=== PATIENT | male | born 1950 | race American Indian/Alaskan Native ===

== ENCOUNTER 2017-05-28 11:39 | Emergency (ER) | payer SELFPAY ==
[2017-05-28 12:47] LABS: Basophils % (Auto) 0.8 % (0.0-1.8); Eosinophils % (Auto) 3.1 % (0.0-4.3); Hematocrit 40.9 % (35.5-45.6); Hemoglobin 13.7 gm/dl (11.8-15.2); Mean Corpuscular HGB Conc 34 % (32-34); Mean Corpuscular Hemoglobin 27 pg (28-32); Mean Corpuscular Volume 80 fl (84-94); Platelet Count 341 K/mm3 (140-440); Red Blood Count 5.14 M/mm3 (3.65-5.03); Red Cell Distribution Width 12.6 % (13.2-15.2); White Blood Count 6.6 K/mm3 (4.5-11.0)
--- NOTE | 2017-05-28 13:02 | Emergency Department Report ---
HPI - General Chief Complaint: Hyperglycemia Time Seen by Provider: 05/28/17 12:48 - HPI HPI: This is a 66-year-old -[place] male who presents to the emergency department by EMS from home with complaint of altered mental status and what appears to be hyperglycemia. The patient says that he's been feeling altered since yesterday all his brother to come and see him today because he says that he "do not know where I am or where I was." Patient says that he realizes that he is in the emergency department and was transported by EMS but otherwise cannot recall exactly what happened this morning that led him to this point. In route, the blood sugar was checked and was found to be greater than 500. He received some IV fluid resuscitation. He denies any pain but still says that he feels confused. The patient has a history of hypertension for which he takes Norvasc and HCTZ. He allegedly has a diagnosed history of diabetes mellitus but the brother, who is bedside, says that he has only seen him taking those 2 blood pressure medications and that there is not any known diabetes medication that he takes. He does not have a primary care physician and the blood pressure medications were last filled through the [facility]. No recent travel or sick contacts at home. No history of CVA, [place], PE/DVT. ED Past Medical Hx - Past Medical History Hx Hypertension: Yes Hx Diabetes: Yes - Social History Smoking Status: Never Smoker Substance Use Type: None - Medications Home Medications: Home Medications Medication Instructions Recorded Confirmed Last Taken Type Hydrochlorothiazide [HCTZ] 25 mg PO QDAY 05/28/17 05/28/17 Unknown History amLODIPine [Norvasc] 10 mg PO DAILY 05/28/17 05/28/17 Unknown History ED Review of Systems ROS: Stated complaint: HYPERGLYCEMIA Other details as noted in HPI Comment: All other systems reviewed and negative Constitutional: denies: chills, fever Eyes: denies: eye pain, eye discharge, vision change ENT: denies: ear pain, throat pain Respiratory: denies: cough, shortness of breath, wheezing Cardiovascular: denies: chest pain, palpitations Gastrointestinal: denies: abdominal pain, nausea, diarrhea Genitourinary: denies: urgency, dysuria Musculoskeletal: denies: back pain, joint swelling, arthralgia Skin: denies: rash, lesions Neurological: confusion. denies: headache, paresthesias Physical Exam - Physical Exam Vital Signs: Vital Signs 05/28/17 05/28/17 12:26 12:41 Temperature 98.4 F Pulse Rate 77 Respiratory 12 12 Rate Blood Pressure 133/83 O2 Sat by Pulse 98 98 Oximetry Physical Exam: GENERAL: The patient is well-developed well-nourished. HENT: Normocephalic. Atraumatic. Patient has moist mucous membranes. EYES: Extraocular motions are intact. Pupils equal reactive to light bilaterally. NECK: Supple. Trachea is midline. CHEST/LUNGS: Clear to auscultation. There is no respiratory distress noted. HEART/CARDIOVASCULAR: Regular. There is no tachycardia. There is no gallop rub or murmur. ABDOMEN: Abdomen is soft, nontender. Patient has normal bowel sounds. There is no abdominal distention. SKIN: Skin is warm and dry. NEURO: Patient is awake but confused. Follows commands but has trouble answering questions appropriately. Cranial nerves II through XII grossly intact. No pronator drift. MUSCULOSKELETAL: There is no tenderness or deformity. There is no limitation range of motion. Cap refill less than 2 seconds. ED Course Vital Signs 05/28/17 05/28/17 12:26 12:41 Temperature 98.4 F Pulse Rate 77 Respiratory 12 12 Rate Blood Pressure 133/83 O2 Sat by Pulse 98 98 Oximetry ED Medical Decision Making - Lab Data Result diagrams: 05/28/17 12:25 05/28/17 12:35 - EKG Data -: EKG Interpreted by Ak EKG shows normal: sinus rhythm, axis, intervals, QRS complexes, ST-T waves Rate: normal - EKG Data When compared to previous EKG there are: previous EKG unavailable Interpretation: normal EKG - Radiology Data Radiology results: report reviewed CT of the head does not show any acute intracranial process including no ischemia, shift, mass, bleeding or skull fracture. - Medical Decision Making 66-year-old male presents to the emergency department after having some confusion and altered mental status. Patient has a history of diabetes but it does not appear that he is on any medication. Blood sugar was found to be about 730. More likely to be HHNK than DKA as there is no venous acidosis or elevated anion gap. He was given some IV fluid resuscitation and a bolus of insulin to start. CT of the head does not show any bleed, shift, mass or any acute process. The rest of his labs are unremarkable other than some pseudohyponatremia. EKG is normal without ST elevation [place], ischemia or dysrhythmia. He will be admitted to the hospital for his uncontrolled diabetes mellitus as well as his altered mental status. - Differential Diagnosis DKA, HHNK, CVA, TIA, [place] Critical Care Time: No Critical care attestation.: If time is entered above; I have spent that time in minutes in the direct care of this critically ill patient, excluding procedure time. ED Disposition Clinical Impression: HHNC (hyperglycemic hyperosmolar nonketotic coma) Altered mental status Qualifiers: Altered mental status type: transient alteration of awareness Qualified Code(s) : R40.4 - Transient alteration of awareness Uncontrolled diabetes mellitus with hyperglycemia Qualifiers: Diabetes mellitus type: other specified (including JUVENTINO) Diabetes mellitus half-way insulin use: unspecified terminal press operator insulin use status Qualified Code(s ): E13.65 - Other specified diabetes mellitus with hyperglycemia Disposition: DC-09 OP ADMIT IP TO THIS HOSP Is pt being admited?: Yes Condition: Fair Referrals: PRIMARY CARE, [Primary Care Provider] - 3-5 Days Time of Disposition: 14:45
[2017-05-28 13:07] LABS: BUN/Creatinine Ratio 13.66; Chloride 79.8 mmol/L (98-107); Potassium 3.5 mmol/L (3.6-5.0)
[2017-05-28 13:18] LABS: Bilirubin,Urine NEG (Negative); Blood,Urine SM (Negative); Ketones,Urine NEG (Negative); Leukocyte Esterase,Urine NEG (Negative); Nitrite,Urine NEG (Negative); Urobilinogen,Urine < 2.0 mg/dL (<2.0)
--- NOTE | 2017-05-28 13:43 | Cat Scan Report ---
CT HEAD WITHOUT CONTRAST: HISTORY: Altered mental status. TECHNIQUE: Sequential CT images without contrast. FINDINGS: Images obtained show bilateral prominence of the sulci and ventricles. There are no abnormal intra- or extra-axial blood or fluid collections. There are no focal masses or evidence of mass effect. The gallo white matter differentiation appears within normal limits. 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 The left temporal lobe is most affected. The posterior fossa structures including the fourth ventricle, cerebellum, and brainstem appear normal. IMPRESSION: Volume loss. Chronic appearing white matter changes. No acute intracranial process is appreciated.
[2017-05-28] MEDS ORDERED: NACL 0.9% 1000 ML 1,000 ML IV ONE ×2 (13:46→13:47)
[2017-05-28] MEDS ORDERED: NOVOLOG SUB-Q ONE (14:40)
[2017-05-28] MEDS ORDERED: NACL 0.45% 2,000 ML IV SCH (15:00)
[2017-05-28 16:32] LABS: BUN/Creatinine Ratio 14.61; Calcium 8.5 mg/dL (8.4-10.2); Chloride 90.8 mmol/L (98-107); Potassium 3.1 mmol/L (3.6-5.0)
[2017-05-28] MEDS ORDERED: POTASSIUM CHLORIDE FEEDTUBE ONE (17:08)
[2017-05-28] MEDS ORDERED: NACL 0.45% 1000 ML 1,000 ML IV ONE (17:42)
--- NOTE | 2017-05-28 19:45 | History and Physical Report ---
History of Present Illness Chief complaint: high blood sugar History of present illness: 66 YO Male with HTN, DM, Metabolic Syndrome, medication noncompliance presents to ED for evaluation. Pt states that he has not been feeling well for the past 2 days. Pt lost to outpatient F/U and normally seeks medical care at [facility] ED. Pt was seen by his brother today and EMS was notified. Pt transported to [facility]. Pt seen and evaluated in ED and found to have serum glucose +500 without evidence of DKA. Pt treated with IVF resuscitation, insulin therapy with normalization of serum glucose. Pt found to have hypokalemia, which was repleted. Pt medically optimized and back to usual state of health. Pt discharged home and instructed to f/u pcp 5 days, and to maintain blood glucose log 3 times daily. Past History Past Medical History: diabetes, hypertension Past Surgical History: No surgical history, Other (reviewed) Social history: single, Lives alone. denies: smoking, alcohol abuse, prescription drug abuse Family history: diabetes, hypertension Medications and Allergies Allergies Allergy/AdvReac Type Severity Reaction Status Date / Time No Known Allergies Allergy Unverified 05/28/17 12:26 Home Medications Medication Instructions Recorded Confirmed Last Taken Type Hydrochlorothiazide [HCTZ] 25 mg PO QDAY 05/28/17 05/28/17 Unknown History Insulin NPH/Regular [Novolin 70/30] 15 unit SQ BIDDIAB #1 vial 05/28/17 Unknown Rx Syring W-Ndl,Disp,Insul,0.5 ml 1 each MC BID #1 box 05/28/17 Unknown Rx [[facility] Syringes] amLODIPine [Norvasc] 10 mg PO DAILY 05/28/17 05/28/17 Unknown History Active Meds: Active Medications Sodium Chloride (Nacl 0.9% 1000 Ml) 1,000 mls @ 125 mls/hr IV ONCE ONE Stop: 05/28/17 21:45 Last Admin: 05/28/17 16:17 Dose: 125 mls/hr Sodium Chloride (Nacl 0.45%) 2,000 mls @ 500 mls/hr IV DIRECT BURKE Last Admin: 05/28/17 17:39 Dose: 500 mls/hr Review of Systems Constitutional: no weight loss, no weight gain Ears, nose, mouth and throat: no ear pain, no ear discharge, no tinnitis, no decreased hearing, no nose pain, no nasal congestion Cardiovascular: no chest pain, no orthopnea, no palpitations, no rapid/ irregular heart beat, no edema, no syncope Respiratory: no cough, no cough with sputum, no excessive sputum, no hemoptysis , no shortness of breath, no dyspnea on exertion Gastrointestinal: no abdominal pain, no nausea, no vomiting, no diarrhea, no constipation Genitourinary Male: nocturia, no dysuria, no hematuria, no flank pain, no discharge, no urinary frequency, no urinary hesitancy Rectal: no pain, no incontinence, no bleeding Musculoskeletal: no neck stiffness, no neck pain, no shooting arm pain, no arm numbness/tingling, no low back pain, no shooting leg pain, no leg numbness/ tingling Integumentary: no rash, no pruritis, no redness, no sores, no wounds, no jaundice Neurological: no head injury, no transient paralysis, no paralysis, no weakness , no parathesias, no numbness, no tingling, no seizures Psychiatric: no anxiety, no memory loss, no change in sleep habits, no sleep disturbances, no insomnia, no hypersomnia, no change in appetite, no change in libido Endocrine: polyphagia, polydipsia, polyuria, nocturia, no cold intolerance, no heat intolerance, no excessive sweating, no flushing, no weight change Hematologic/Lymphatic: no easy bruising, no easy bleeding Allergic/Immunologic: no urticaria, no allergic rhinitis, no wheezing Exam - Constitutional Vitals: Temp Pulse Resp BP Pulse Ox 98.4 F 82 15 162/76 98 05/28/17 12:26 05/28/17 15:00 05/28/17 15:00 05/28/17 15:00 05/28/17 15:00 General appearance: Present: obese - EENT Eyes: Present: PERRL ENT: hearing intact, clear oral mucosa - Neck Neck: Present: supple, normal ROM - Respiratory Respiratory effort: normal Respiratory: bilateral: CTA - Cardiovascular Heart Sounds: Present: S1 & S2. Absent: rub, click - Extremities Extremities: pulses symmetrical, No edema Peripheral Pulses: within normal limits - Abdominal General gastrointestinal: Present: soft, non-tender, non-distended, normal bowel sounds Male genitourinary: Present: normal - Integumentary Integumentary: Present: clear, warm, dry - Musculoskeletal Musculoskeletal: gait normal, strength equal bilaterally - Psychiatric Psychiatric: appropriate mood/affect, intact judgment & insight - Neurologic Neurologic: CNII-XII intact, moves all extremities Results - Labs CBC & Chem 7: 05/28/17 12:25 05/28/17 15:56 Labs: Abnormal lab results 05/28/17 05/28/17 05/28/17 Range/Units 12:07 12:25 12:35 RBC 5.14 H (3.65-5.03) M/mm3 MCV 80 L (84-94) fl MCH 27 L (28-32) pg RDW 12.6 L (13.2-15.2) % [place] % (Auto) 8.0 H (0.0-7.3) % Sodium 124 L (137-145) mmol/L Potassium 3.5 L (3.6-5.0) mmol/L Chloride 79.8 L (98-107) mmol/L BUN 41 H (9-20) mg/dL Creatinine 3.0 H (0.8-1.5) mg/dL Glucose 744 H* (75-100) mg/dL POC Glucose > 500 H (70-105) 05/28/17 05/28/17 05/28/17 Range/Units 15:04 15:56 19:09 RBC (3.65-5.03) M/mm3 MCV (84-94) fl MCH (28-32) pg RDW (13.2-15.2) % [place] % (Auto) (0.0-7.3) % Sodium 134 L D (137-145) mmol/L Potassium 3.1 L (3.6-5.0) mmol/L Chloride 90.8 L (98-107) mmol/L BUN 38 H (9-20) mg/dL Creatinine 2.6 H (0.8-1.5) mg/dL Glucose 384 H (75-100) mg/dL POC Glucose > 500 H 179 H (70-105) Assessment and Plan - Patient Problems (1) Uncontrolled diabetes mellitus with hyperglycemia Current Visit: Yes Status: Acute Qualifiers: Diabetes mellitus type: other specified (including JUVENTINO) Diabetes mellitus penitentiary insulin use: unspecified penitentiary insulin use status Qualified Code (s): E13.65 - Other specified diabetes mellitus with hyperglycemia Plan to address problem: Insulin therapy, ADA diet, IVF resuscitation, Pt discharged home with insulin therapy, Pt to f/u pcp within 5 days with serum glucose log, (2) HTN (hypertension) Current Visit: Yes Status: Acute Qualifiers: Hypertension type: H Plan to address problem: resume home medication, f/u pcp within 5 days for medication reconciliation (3) Hypokalemia Current Visit: Yes Status: Acute Plan to address problem: repleted
[2017-05-28 20:48] LABS: BUN/Creatinine Ratio 14.34; Calcium 8.2 mg/dL (8.4-10.2); Chloride 95.5 mmol/L (98-107); Potassium 3.3 mmol/L (3.6-5.0)
[2017-05-28 20:50] VITALS: BP 135/58
== END 2017-05-28 20:51 | disposition admitted as inpatient to this hospital (09) ==
LOC: ED 11:39
DX: E11.00 Type 2 diabetes mellitus with hyperosmolarity without nonketotic hyperglycemic-hyperosmolar coma (NKHHC) (principal); R40.4 Transient alteration of awareness; E13.65 Other specified diabetes mellitus with hyperglycemia; I10 Essential (primary) hypertension
CPT/HCPCS: 36415; 70450; 80048; 81001; 82805; 82962; 83930; 84443; 84484; 85025; 93005; 93010; 96361; 96372; 96374; 99285; J7030; J1815